=== PATIENT | female | born 1970 | race Caucasian/White ===

== ENCOUNTER 2016-07-21 06:58 | Emergency (ER) | payer OTHER ==
[~2016-07-21] VITALS: Ht 172.7 cm; Wt 62.6 kg
[2016-07-21 07:00] VITALS: BP 140/70
--- NOTE | 2016-07-21 07:43 | NUR ---
PT TAKEN TO CT VIA WHEELCHAIR
== END 2016-07-21 08:09 | disposition home or self-care (01) ==
LOC: ER 07:00
DX: R05 Cough (principal); Z60.9 Problem related to social environment, unspecified; Z60.8 Other problems related to social environment
CPT/HCPCS: 71020; 99284; A4606; Z7610

== ENCOUNTER 2016-10-09 12:02 | Emergency (ER) | payer OTHER ==
[~2016-10-09] VITALS: Ht 167.6 cm; Wt 52.2 kg
--- NOTE | 2016-10-09 12:02 | NUR ---
PT YESSI FROM THE STREETS TO ERBED 15. PER REPORT, POSSIBLE METH USE. ALTERED, DRY MOUITH POSSIBLY DEHYDRATED. PLACED ON MONITOR TACHY OTHERWISE STABLE VITALS AT THIS TIME. AWAITING MD FITZGERALD.
--- NOTE | 2016-10-09 12:29 | NUR ---
TUAN TURCIOS AT BEDSIDE FOR EVAL.
[2016-10-09] MEDS ORDERED: LORAZEPAM INJ 2 MG/ML VIAL IVP ONE (12:30)
[2016-10-09] MEDS ORDERED: IV NS 0.9% 1,000 ML BAG IV ONE (12:30)
[2016-10-09 12:43] LABS: BASOPHILS # (AUTO) 0.1 /CMM (0.0-0.2); BASOPHILS % (AUTO) 1.2 % (0.0-2.0); EOSINOPHILS % (AUTO) 0.2 % (0.0-6.0); HEMATOCRIT 36 % (33-45); LYMPHOCYTES # (AUTO) 2.6 /CMM (0.8-4.8); LYMPHOCYTES % (AUTO) 24.1 % (20.0-44.0); MEAN CORPUSCULAR HEMOGLOBIN 30 PG (26.0-33.0); MEAN CORPUSCULAR HGB CONC 34 g/dl (31.0-36.0); MEAN CORPUSCULAR VOLUME 89 fL (82-100); MONOCYTES # (AUTO) 0.8 /CMM (0.1-1.30); MONOCYTES % (AUTO) 7.4 % (2.0-12.0); NEUTROPHILS # (AUTO) 7.2 /CMM (1.8-8.9); NEUTROPHILS % (AUTO) 67.1 % (43.0-81.0); PLATELET COUNT (AUTO) 486 /CMM (150-450); RDW COEFFICIENT OF VARIATION 14.6 (11.5-15.0); RED BLOOD CELL COUNT(AUTO) 3.99 MIL/uL (4.0-5.2); WHITE BLOOD COUNT (AUTO) 10.7 K/uL (4.3-11.0)
[2016-10-09 12:53] LABS: CALCIUM, SERUM 9.1 mg/dL (8.5-10.1); CARBON DIOXIDE 25 mmol/L (21-32); CHLORIDE 108 mmol/L (98-107); CREATININE 0.9 mg/dL (0.6-1.3); GLUCOSE 100 mg/dL (74-106); POTASSIUM 3.7 mmol/L (3.5-5.1); SODIUM SERUM 144 mmol/L (136-145); UREA NITROGEN, BLOOD 20 mg/dL (7-18)
[2016-10-09 13:10] LABS: ACETAMINOPHEN 0 ug/ml (10-30); ALANINE AMINOTRANSFERASE 29 U/L (12-78); ALBUMIN 3.9 g/dL (3.4-5.0); ALCOHOL, BLOOD < 3 mg/dL (0-0); ALKALINE PHOSPHATASE 48 U/L (46-116); ASPARTATE AMINOTRANSFERASE 26 U/L (15-37); BILIRUBIN,DIRECT 0.1 mg/dL (0.0-0.2); SALICYLATE 0.3 mg/dL (2.8-20.0); TOTAL PROTEIN, SERUM 7.9 g/dL (6.4-8.2)
[2016-10-09] MEDS ORDERED: IV NS 0.9% 1,000 ML ONE (13:25)
[2016-10-09] MEDS ORDERED: IV SET PRIMARY 1 EA INFUS.SET MC ONE (13:25)
[2016-10-09] MEDS ORDERED: LORAZEPAM INJ 2 MG/ML VIAL ONE (13:25)
[2016-10-09] MEDS ORDERED: OLANZAPINE 10 MG VIAL IM ONE ×2 (14:00→14:02)
[2016-10-09] MEDS ORDERED: WATER FOR INJECTION,STERILE 10 ML ONE (14:02)
--- NOTE | 2016-10-09 15:16 | NUR ---
ART CHIEF RESERVOIR ENGINEERING AT BEDSIDE FOR PSYCH EVAL.
[2016-10-09 15:22] LABS: APPEARANCE,URINE Clear (CLEAR); BILIRUBIN,URINE Negative (NEGATIVE); BLOOD, URINE Negative Ery/uL (NEGATIVE); COLOR,URINE Yellow (YELLOW); KETONES,URINE Negative (NEGATIVE); LEUKOCYTE ESTERASE ,URINE Negative (NEGATIVE); NITRITE, URINE Negative (NEGATIVE); PH,URINE 5.5 (5.0-8.0); PROTEIN,URINE 30 mg/dl (NEGATIVE); UGLUCOSE Negative (NEGATIVE); UROBILINOGEN,URINE 0.2 EU/dL (0.2)
[2016-10-09 15:23] LABS: BACTERIA,URINE Few /HPF (None Seen); RBC,URINE 0-2 /HPF (0-2); SQUAMOUS EPITHELIAL CELL,UR Few /HPF (None Seen); WBC,URINE 0-2 /HPF (0-3)
[2016-10-09 15:24] LABS: HYALINE CASTS, URINE Few /LPF (None Seen)
--- NOTE | 2016-10-09 17:10 | NUR ---
IV removed. Catheter intact and site benign. Pressure and 4x4 applied to site. No bleeding noted.
--- NOTE | 2016-10-09 17:27 | NUR ---
Patient discharged to home in stable condition. Written and verbal after care instructions given. Patient verbalizes understanding of instruction. Pt ambulatory with a steady gait.
[2016-10-09 17:30] VITALS: BP 122/71
== END 2016-10-09 17:31 | disposition home or self-care (01) ==
LOC: ER 12:05
DX: F19.10 Other psychoactive substance abuse, uncomplicated (principal); R41.82 Altered mental status, unspecified
CPT/HCPCS: 36415; 51702; 70450; 80048; 80076; 80305; 80329; 81001; 84484; 84703; 85025; 93005; 96361; 96372; 96374; 99285; A4606; G0480 ×2; J2060; J3490; J7030; Z7610; 81000-TC

== ENCOUNTER 2017-07-24 20:14 | Emergency (ER) | payer OTHER ==
[~2017-07-24] VITALS: Ht 165.1 cm; Wt 63.5 kg
[2017-07-24] MEDS ORDERED: OLANZAPINE 5 MG TABLET PO ONE (20:30)
[2017-07-24] MEDS ORDERED: LORAZEPAM 1 MG TABLET PO ONE (20:30)
--- NOTE | 2017-07-24 20:32 | NUR ---
PATIENT TO ED DT SI- NO SPECIFIC PLAN, PER PATIENT SHE HAS BEEN OFF OF MEDS FOR 3 WEEKS; AND HAS BEEN HEARING VOICES. PATIENT IS NOT IN DISTRESS. VSS
[2017-07-24 20:45] LABS: BASOPHILS # (AUTO) 0.1 /CMM (0.0-0.2); BASOPHILS % (AUTO) 0.9 % (0.0-2.0); EOSINOPHILS % (AUTO) 1.6 % (0.0-6.0); HEMATOCRIT 37 % (33-45); HEMOGLOBIN 12.5 g/dL (11.5-14.8); LYMPHOCYTES # (AUTO) 2.9 /CMM (0.8-4.8); MEAN CORPUSCULAR HGB CONC 34 g/dl (31.0-36.0); MEAN CORPUSCULAR VOLUME 87 fL (82-100); MONOCYTES # (AUTO) 0.6 /CMM (0.1-1.30); NEUTROPHILS # (AUTO) 4.7 /CMM (1.8-8.9); NEUTROPHILS % (AUTO) 56.5 % (43.0-81.0); PLATELET COUNT (AUTO) 316 /CMM (150-450); RDW COEFFICIENT OF VARIATION 15.6 (11.5-15.0); RED BLOOD CELL COUNT(AUTO) 4.22 MIL/uL (4.0-5.2); WHITE BLOOD COUNT (AUTO) 8.4 K/uL (4.3-11.0)
[2017-07-24 20:50] LABS: APPEARANCE,URINE Clear (CLEAR); BILIRUBIN,URINE Negative (NEGATIVE); BLOOD, URINE Small Ery/uL (NEGATIVE); COLOR,URINE Yellow (YELLOW); KETONES,URINE Negative (NEGATIVE); LEUKOCYTE ESTERASE ,URINE Negative (NEGATIVE); NITRITE, URINE Negative (NEGATIVE); PROTEIN,URINE Negative (NEGATIVE); UGLUCOSE Negative (NEGATIVE); UROBILINOGEN,URINE 0.2 EU/dL (0.2)
[2017-07-24] MEDS ORDERED: LORAZEPAM 1 MG TABLET ONE (20:53)
[2017-07-24] MEDS ORDERED: OLANZAPINE 5 MG TABLET ONE (20:53)
[2017-07-24 21:01] LABS: ALANINE AMINOTRANSFERASE 30 U/L (12-78); ALBUMIN 3.2 g/dL (3.4-5.0); ALCOHOL, BLOOD < 3 mg/dL (0-0); ALKALINE PHOSPHATASE 50 U/L (46-116); ASPARTATE AMINOTRANSFERASE 20 U/L (15-37); BILIRUBIN,DIRECT 0.1 mg/dL (0.0-0.2); BILIRUBIN,TOTAL 0.1 mg/dL (0.2-1.0); CALCIUM, SERUM 8.9 mg/dL (8.5-10.1); CARBON DIOXIDE 30 mmol/L (21-32); CHLORIDE 104 mmol/L (98-107); CREATININE 0.6 mg/dL (0.6-1.3); GLUCOSE 95 mg/dL (74-106); POTASSIUM 3.6 mmol/L (3.5-5.1); SODIUM SERUM 137 mmol/L (136-145); TOTAL PROTEIN, SERUM 6.7 g/dL (6.4-8.2); UREA NITROGEN, BLOOD 9 mg/dL (7-18)
[2017-07-24 21:11] LABS: SALICYLATE 1.8 mg/dL (2.8-20.0)
[2017-07-24 21:12] LABS: ACETAMINOPHEN 0 ug/ml (10-30)
[2017-07-24 21:17] LABS: BACTERIA,URINE Rare /HPF (None Seen); SQUAMOUS EPITHELIAL CELL,UR Few /HPF (None Seen); URINE AMORPHOUS URATE Few /HPF (None Seen); WBC,URINE 0-2 /HPF (0-3)
--- NOTE | 2017-07-24 22:13 | NUR ---
CALLED TRINI PULLIAM FOR PSYCH EVAL.
--- NOTE | 2017-07-24 22:59 | NUR ---
CAPILLA, LACW AT BEDSIDE FOR EVAL
--- NOTE | 2017-07-24 23:07 | NUR ---
ART BS FOR EVAL
--- NOTE | 2017-07-25 01:08 | NUR ---
CALLED MAGGI AT [facility] ([phone]). SHE SAID SHE WOULD FOLLOW UP WITH THE [facility] AND CALL ME BACK WITH AN UPDATE WHEN SHE RECEIVES INFORMATION.
--- NOTE | 2017-07-25 01:20 | NUR ---
RECEIVED CALL BACK FROM MAGGI AT [facility]. PER MAGGI, CHARGE NURSE IS COUNTING THE AVAILABLE BEDS FOR PSYCHIATRIC ADMISSION AND WILL CALL MAGGI BACK WITH AN UPDATE.
--- NOTE | 2017-07-25 01:57 | NUR ---
RECEIVED CALL BACK FROM MAGGI AT [facility]. PT GOING TO [facility]. ACCEPTED BY DR. RICE. CALL FOR REPORT [address] [id number] [place] [address]
--- NOTE | 2017-07-25 02:04 | NUR ---
CALLED [facility]. GAVE REPORT TO DANICA DIOP. PATIENT GOING TO BED 601-B.
--- NOTE | 2017-07-25 02:07 | NUR ---
CALLED [facility] FOR TRANSPORT TO [facility]. ETA:60 MINS TRIP#[phone]
[2017-07-25 03:13] VITALS: BP 106/61
== END 2017-07-25 03:14 ==
LOC: ER 20:15
DX: F29 Unspecified psychosis not due to a substance or known physiological condition (principal); R45.851 Suicidal ideations; F31.9 Bipolar disorder, unspecified; F20.9 Schizophrenia, unspecified; Z91.19 Patient's noncompliance with other medical treatment and regimen
CPT/HCPCS: 36415; 80048-TC; 80076-TC; 80305; 81000-TC; 84703-TC; 85025-TC; A4606; G0480; Z7610

== ENCOUNTER 2017-10-17 14:28 | Emergency (ER) | payer OTHER ==
[~2017-10-17] VITALS: Ht 162.6 cm; Wt 60.8 kg
--- NOTE | 2017-10-17 14:30 | NUR ---
[id number]: PSYCHOTIC S/P USING METH Addendum: 10/17/17 at 1617 by QUIQUE NAD NOTED, VSS, RESP EVEN AND UNLABORED, PT WAS PUT ON MONITOR AND HOSPITAL GOWN. WAITING FOR MD FITZGERALD.
[2017-10-17] MEDS ORDERED: LORAZEPAM INJ 2 MG/ML VIAL ONE ×2 (14:48→23:18)
[2017-10-17] MEDS ORDERED: LORAZEPAM INJ 2 MG/ML VIAL IM ONE ×2 (15:00→23:30)
[2017-10-17 15:39] LABS: BASOPHILS # (AUTO) 0.1 /CMM (0.0-0.2); BASOPHILS % (AUTO) 0.7 % (0.0-2.0); EOSINOPHILS % (AUTO) 0.5 % (0.0-6.0); HEMATOCRIT 40 % (33-45); HEMOGLOBIN 14.2 g/dL (11.5-14.8); MEAN CORPUSCULAR HEMOGLOBIN 31 PG (26.0-33.0); MEAN CORPUSCULAR HGB CONC 36 g/dl (31.0-36.0); MEAN CORPUSCULAR VOLUME 88 fL (82-100); MONOCYTES # (AUTO) 1.2 /CMM (0.1-1.30); MONOCYTES % (AUTO) 10.1 % (2.0-12.0); NEUTROPHILS # (AUTO) 8.3 /CMM (1.8-8.9); NEUTROPHILS % (AUTO) 71.7 % (43.0-81.0); PLATELET COUNT (AUTO) 326 /CMM (150-450); RDW COEFFICIENT OF VARIATION 13.4 (11.5-15.0); RED BLOOD CELL COUNT(AUTO) 4.51 MIL/uL (4.0-5.2); WHITE BLOOD COUNT (AUTO) 11.7 K/uL (4.3-11.0)
--- NOTE | 2017-10-17 15:40 | NUR ---
PT IS COMBATIVE, UNABLE TO STAY STILL FOR CT SCAN. ER WILL CALL WHEN READY.
[2017-10-17 15:48] LABS: CALCIUM, SERUM 9.8 mg/dL (8.5-10.1); CARBON DIOXIDE 29 mmol/L (21-32); CHLORIDE 102 mmol/L (98-107); CREATININE 0.9 mg/dL (0.6-1.3); GLUCOSE 90 mg/dL (74-106); POTASSIUM 3.5 mmol/L (3.5-5.1); SODIUM SERUM 139 mmol/L (136-145); UREA NITROGEN, BLOOD 27 mg/dL (7-18)
[2017-10-17 15:52] LABS: INR 1.06 (0.85-1.15)
[2017-10-17 15:54] LABS: ACETAMINOPHEN < 2 ug/ml (10-30); ALANINE AMINOTRANSFERASE 78 U/L (12-78); ALBUMIN 4.4 g/dL (3.4-5.0); ALKALINE PHOSPHATASE 70 U/L (46-116); ASPARTATE AMINOTRANSFERASE 143 U/L (15-37); BILIRUBIN,DIRECT 0.2 mg/dL (0.0-0.2); BILIRUBIN,TOTAL 1.2 mg/dL (0.2-1.0); SALICYLATE 0.4 mg/dL (2.8-20.0); TOTAL PROTEIN, SERUM 8.6 g/dL (6.4-8.2)
[2017-10-17 16:12] LABS: THYROID STIMULATING HORMONE 1.536 uIU/mL (0.358-3.74)
[2017-10-17] MEDS ORDERED: IV NS 0.9% 1,000 ML BAG IV ONE (17:30)
--- NOTE | 2017-10-17 17:35 | NUR ---
pt is more cooperative, understand why she is in the hospital. but still unable to give urine sample. will try after IVF has been infused.
--- NOTE | 2017-10-17 17:37 | NUR ---
called nutirition for meal tray.
[2017-10-17 18:31] LABS: APPEARANCE,URINE Slightly Cloudy (CLEAR); BILIRUBIN,URINE SMALL (NEGATIVE); BLOOD, URINE Negative Ery/uL (NEGATIVE); COLOR,URINE Dark (YELLOW); KETONES,URINE Trace (NEGATIVE); LEUKOCYTE ESTERASE ,URINE Negative (NEGATIVE); NITRITE, URINE Negative (NEGATIVE); PH,URINE 5.5 (5.0-8.0); PROTEIN,URINE 100 mg/dl (NEGATIVE); UGLUCOSE Negative (NEGATIVE); UROBILINOGEN,URINE 0.2 EU/dL (0.2)
[2017-10-17 18:47] LABS: RBC,URINE 0-2 /HPF (0-2); WBC,URINE 0-2 /HPF (0-3)
[2017-10-17 18:48] LABS: BACTERIA,URINE Few /HPF (None Seen); SQUAMOUS EPITHELIAL CELL,UR Few /HPF (None Seen)
--- NOTE | 2017-10-17 19:00 | NUR ---
Patient is resting comfortably in bed with eyes closed. Easily aroused. VSS
--- NOTE | 2017-10-17 20:00 | NUR ---
1:1 SITTER AT BS
--- NOTE | 2017-10-17 22:58 | NUR ---
VSS. THAYER AT BS.
[2017-10-17] MEDS ORDERED: OLANZAPINE 10 MG VIAL IM ONE ×2 (23:18→23:30)
[2017-10-17] MEDS ORDERED: LORAZEPAM INJ 2 MG/ML VIAL IV ONE (23:30)
--- NOTE | 2017-10-17 23:55 | NUR ---
ASSUMED CARE OF PT AT THIS TIME. PT RESTING WITH EYES CLOSED BUT AROUSABLE. NO S/S OF DISTRESS NOTED AT THIS TIME. RESP EVEN AND UNLABORED. WILL CONTINUE TO MONITOR PT.
--- NOTE | 2017-10-18 01:07 | NUR ---
GIVEN SANDWICH AND JUICE. DENIES SI/HI OR ANY NEW SX'S AT THIS TIME.
--- NOTE | 2017-10-18 02:28 | NUR ---
RESTING WITH NO S/S OF DISTRESS AT THIS TIME. RESP EVEN AND UNLABORED.
--- NOTE | 2017-10-18 03:38 | NUR ---
LYING SUPINE WITH NO DISTRESS. RESP EVEN AND UNLABOREED.
--- NOTE | 2017-10-18 05:00 | NUR ---
LYING LT SIDE AT THIS TIME. STILL MONITORED. NAD NOTED.
[2017-10-18 05:02] VITALS: BP 107/77
--- NOTE | 2017-10-18 05:30 | NUR ---
AAO X4; Denies SI/HI. Patient discharged to home in stable condition. Written and verbal after care instructions given. Patient verbalizes understanding of instruction. IV removed. Catheter intact and site benign. Pressure and 4x4 applied to site. No bleeding noted. Ambulatory with a steady gait
== END 2017-10-18 05:32 | disposition home or self-care (01) ==
LOC: ER 14:32
DX: F15.10 Other stimulant abuse, uncomplicated (principal); E86.0 Dehydration; F31.9 Bipolar disorder, unspecified; F20.9 Schizophrenia, unspecified
CPT/HCPCS: 36415; 70450; 80048; 80076; 80305; 80329; 81001; 84443; 84703; 85025; 85730; 93005; 96361; 96372; 96374; 99285; A4606; G0480 ×2; J2060 ×2; J3490; Z7610; 81000-TC

== ENCOUNTER 2017-11-13 22:22 | Emergency (ER) | payer OTHER ==
[~2017-11-13] VITALS: Ht 152.4 cm; Wt 55.8 kg
--- NOTE | 2017-11-13 22:23 | NUR ---
ER AT BEDSIDE FOR EVAL
--- NOTE | 2017-11-13 23:09 | NUR ---
"FOUND SEATED INFRONT OF LAUNDRY MAT DRUNK WITH EMPTY VODAK BOTTLE" DENIES SI HI. PT IS HYPERTENSIVE BUT OTHERWISE VSS NO ACUTE DISTRESS NOTED AT THIS TIME. PT IS ALERT AND ORIENTED X3 BUT ABLE TO MAKE NEED KNOWN. WILL CONTINUE TO MONITOR FOR ANY CHANGES DURING THE SHIFT.
[2017-11-13 23:28] LABS: BASOPHILS # (AUTO) 0.1 /CMM (0.0-0.2); BASOPHILS % (AUTO) 0.6 % (0.0-2.0); EOSINOPHILS % (AUTO) 1.6 % (0.0-6.0); HEMATOCRIT 39 % (33-45); HEMOGLOBIN 13.3 g/dL (11.5-14.8); LYMPHOCYTES # (AUTO) 3.6 /CMM (0.8-4.8); LYMPHOCYTES % (AUTO) 31.9 % (20.0-44.0); MEAN CORPUSCULAR HEMOGLOBIN 32 PG (26.0-33.0); MEAN CORPUSCULAR HGB CONC 34 g/dl (31.0-36.0); MEAN CORPUSCULAR VOLUME 93 fL (82-100); MONOCYTES # (AUTO) 1.2 /CMM (0.1-1.30); MONOCYTES % (AUTO) 10.2 % (2.0-12.0); NEUTROPHILS # (AUTO) 6.3 /CMM (1.8-8.9); NEUTROPHILS % (AUTO) 55.7 % (43.0-81.0); PLATELET COUNT (AUTO) 321 /CMM (150-450); RDW COEFFICIENT OF VARIATION 13.7 (11.5-15.0); RED BLOOD CELL COUNT(AUTO) 4.22 MIL/uL (4.0-5.2); WHITE BLOOD COUNT (AUTO) 11.3 K/uL (4.3-11.0)
[2017-11-13 23:43] LABS: APPEARANCE,URINE CLOUDY (CLEAR); BILIRUBIN,URINE NEGATIVE (NEGATIVE); BLOOD, URINE TRACE-INTA Ery/uL (NEGATIVE); COLOR,URINE YELLOW (YELLOW); KETONES,URINE NEGATIVE (NEGATIVE); LEUKOCYTE ESTERASE ,URINE TRACE (NEGATIVE); NITRITE, URINE NEGATIVE (NEGATIVE); PROTEIN,URINE TRACE mg/dl (NEGATIVE); UGLUCOSE NEGATIVE (NEGATIVE)
[2017-11-13 23:57] LABS: BACTERIA,URINE Few /HPF (None Seen); RBC,URINE 0-2 /HPF (0-2); SQUAMOUS EPITHELIAL CELL,UR Moderate /HPF (None Seen); URINE AMORPHOUS URATE Moderate /HPF (None Seen)
[2017-11-13 23:58] LABS: CALCIUM, SERUM 8.5 mg/dL (8.5-10.1); CARBON DIOXIDE 22 mmol/L (21-32); CHLORIDE 102 mmol/L (98-107); CREATININE 0.8 mg/dL (0.6-1.3); GLUCOSE 116 mg/dL (74-106); POTASSIUM 3.2 mmol/L (3.5-5.1); SODIUM SERUM 136 mmol/L (136-145); UREA NITROGEN, BLOOD 15 mg/dL (7-18)
[2017-11-14 00:04] LABS: ALANINE AMINOTRANSFERASE 31 U/L (12-78); ALBUMIN 3.8 g/dL (3.4-5.0); ALKALINE PHOSPHATASE 76 U/L (46-116); ASPARTATE AMINOTRANSFERASE 26 U/L (15-37); BILIRUBIN,DIRECT 0.1 mg/dL (0.0-0.2); BILIRUBIN,TOTAL 0.6 mg/dL (0.2-1.0); TOTAL PROTEIN, SERUM 7.3 g/dL (6.4-8.2)
[2017-11-14 00:08] LABS: ACETAMINOPHEN 0 ug/ml (10-30); ALCOHOL, BLOOD < 3 mg/dL (0-0); SALICYLATE 1.1 mg/dL (2.8-20.0)
[2017-11-14] MEDS ORDERED: CEPHALEXIN MONOHYDRATE 500 MG CAPSULE PO ONE ×2 (00:30→00:36)
[2017-11-14] MEDS ORDERED: POTASSIUM CHLORIDE 20 MEQ TAB.PRT.SR PO ONE ×2 (00:30→00:36)
[2017-11-14 05:19] VITALS: BP 130/86
== END 2017-11-14 05:20 | disposition home or self-care (01) ==
LOC: ER 22:23
DX: F15.129 Other stimulant abuse with intoxication, unspecified (principal); F19.10 Other psychoactive substance abuse, uncomplicated; N39.0 Urinary tract infection, site not specified; E87.6 Hypokalemia; F31.9 Bipolar disorder, unspecified; F20.9 Schizophrenia, unspecified; F10.10 Alcohol abuse, uncomplicated; Y90.0 Blood alcohol level of less than 20 mg/100 ml
CPT/HCPCS: 36415; 80048; 80076; 80305; 80329; 81001; 82962; 85025; 87086; 99284; A4606; G0480 ×2; Z7610; 81000-TC

== ENCOUNTER 2019-09-25 02:29 | Emergency (ER) | payer OTHER ==
[~2019-09-25] VITALS: Ht 160 cm; Wt 59.0 kg
--- NOTE | 2019-09-25 02:33 | NUR ---
BIBRA[address] FROM [address] PER RA, "FOUND LAYING ON FLOOR S/P METH USE", PT TO BED 6, AWAKE, SPEAKING INCOHERENTLY, BIZARRE BEHAVIOR, PLACED ON MONITOR, -SOB, -CP, VSS. PENDING MD FITZGERALD
--- NOTE | 2019-09-25 02:50 | NUR ---
URINE COLLECTED AND SENT TO LAB
[2019-09-25 03:03] LABS: BASOPHILS # (AUTO) 0.1 /CMM (0.0-0.2); BASOPHILS % (AUTO) 0.6 % (0.0-2.0); EOSINOPHILS % (AUTO) 0.2 % (0.0-6.0); HEMATOCRIT 44 % (33-45); HEMOGLOBIN 14.7 g/dL (11.5-14.8); LYMPHOCYTES # (AUTO) 2.5 /CMM (0.8-4.8); LYMPHOCYTES % (AUTO) 13.8 % (20.0-44.0); MEAN CORPUSCULAR HGB CONC 34 g/dl (31.0-36.0); MEAN CORPUSCULAR VOLUME 90 fL (82-100); MONOCYTES # (AUTO) 1.5 /CMM (0.1-1.30); MONOCYTES % (AUTO) 8.6 % (2.0-12.0); NEUTROPHILS # (AUTO) 13.9 /CMM (1.8-8.9); NEUTROPHILS % (AUTO) 76.8 % (43.0-81.0); PLATELET COUNT (AUTO) 350 /CMM (150-450); RED BLOOD CELL COUNT(AUTO) 4.86 MIL/uL (4.0-5.2)
[2019-09-25 03:15] LABS: ALANINE AMINOTRANSFERASE 28 U/L (12-78); ALBUMIN 4.8 g/dL (3.4-5.0); ALCOHOL, BLOOD < 3 mg/dL (0-0); ALKALINE PHOSPHATASE 72 U/L (46-116); ASPARTATE AMINOTRANSFERASE 36 U/L (15-37); BILIRUBIN,DIRECT 0.2 mg/dL (0.0-0.2); BILIRUBIN,TOTAL 1.6 mg/dL (0.2-1.0); CALCIUM, SERUM 9.7 mg/dL (8.5-10.1); CARBON DIOXIDE 23 mmol/L (21-32); CHLORIDE 92 mmol/L (98-107); CREATININE 1.3 mg/dL (0.6-1.3); GLUCOSE 119 mg/dL (74-106); POTASSIUM 3.2 mmol/L (3.5-5.1); SODIUM SERUM 129 mmol/L (136-145); UREA NITROGEN, BLOOD 43 mg/dL (7-18)
[2019-09-25 03:22] LABS: SALICYLATE < 0.2 mg/dL (2.8-20.0)
[2019-09-25 03:23] LABS: ACETAMINOPHEN 0 ug/ml (10-30)
[2019-09-25 03:28] LABS: APPEARANCE,URINE Clear (CLEAR); BILIRUBIN,URINE Negative (NEGATIVE); BLOOD, URINE Small Ery/uL (NEGATIVE); COLOR,URINE Yellow (YELLOW); KETONES,URINE Negative (NEGATIVE); LEUKOCYTE ESTERASE ,URINE Negative (NEGATIVE); NITRITE, URINE Negative (NEGATIVE); PH,URINE 5.5 (5.0-8.0); PROTEIN,URINE 100 mg/dl (NEGATIVE); UGLUCOSE Negative (NEGATIVE); UROBILINOGEN,URINE 0.2 EU/dL (0.2)
--- NOTE | 2019-09-25 03:30 | NUR ---
PT ON ER OBS; PT SLEEPING, VSS, NAD NOTED.
[2019-09-25 03:52] LABS: BACTERIA,URINE Moderate /HPF (None Seen); SQUAMOUS EPITHELIAL CELL,UR Few /HPF (None Seen)
--- NOTE | 2019-09-25 06:00 | NUR ---
PT OK TO D/C ONCE MORE AWAKE. D/C PAPERS IN CHART.
--- NOTE | 2019-09-25 07:00 | NUR ---
PT AWAKE. AAOX4. AMBULATORY WITH STEADY GAIT. PER MD, MEDICALLY CLEARED FOR DISCHARGE. IV removed. Catheter intact and site benign. Pressure and 4x4 applied to site. No bleeding noted.
[2019-09-25 07:03] VITALS: BP 148/68
--- NOTE | 2019-09-25 07:03 | NUR ---
Patient given written and verbal discharge instructions. Patient verbalizes understanding of instructions. Patient is ambulatory with steady gait. Refuses offer of [facility] placement. Patient given list of available shelters in surrounding area.
== END 2019-09-25 07:04 | disposition home or self-care (01) ==
LOC: ER 02:32 → EDBD 02:32 → MERGE 02:32 → ER 07:04
DX: F15.10 Other stimulant abuse, uncomplicated (principal)
CPT/HCPCS: 36415; 80048; 80076; 80305; 80307; 80329; 81001; 82962; 85025; 87086; 99285; G0480; 81000-TC

== ENCOUNTER 2020-11-30 09:07 | Emergency (ER) | payer OTHER ==
[~2020-11-30] VITALS: Ht 170.2 cm; Wt 61.2 kg
--- NOTE | 2020-11-30 09:35 | NUR ---
[address] [facility] [address], "DONT FEEL GOOD AND IM HEARING VOICES." DENIES SI/HI. PATIENT ALERT ORIENTED X4. 0/10 PAIN, RESPIRATIONS EVEN AND UNLABORED. PROVIDED WARM BLANKET. MD AT BEDSIDE AND WILL CONTINUE TO MONITOR.
--- NOTE | 2020-11-30 10:46 | NUR ---
Home Energy Inspector consultation: Home Energy Inspector consultation requested for homelessness. Patient is a 50 year old female, who was brought in by ambulance complaining of "I'm not feeling good, I'm hearing voices". This ROOF MECHANIC met with the patient bedside in the ED. Patient was eating a sandwich, but was receptive to speaking with this ROOF MECHANIC. Patient states she is homeless, suffers from Bipolar Disorder and Schizophrenia, is hearing voices, and has not taken her medications for nearly 2 months. Patient reports SI, with plan to "I'll take pills from the street, I'll bash my head in". Patient denies HI. Patient denies visual hallucinations, however reports hearing voices. Patient could not provide additional information about the voices. This ROOF MECHANIC offered patient the option of voluntary psychiatric hospitalization, and patient expressed agreement. Patient denies use of drugs. Patient kept on stating "I don't feel good, I have an infection" and at times was difficult to redirect. This ROOF MECHANIC offered patient homeless community resources and patient was receptive. This ROOF MECHANIC provided patient with the homeless resource packet, which includes a list of homeless shelters, places for food and showers, medical and mental health clinics, and locations of pharmacies. Patient signed the homeless patient waiver form, and this ROOF MECHANIC placed the waiver in patient's ED chart. This ROOF MECHANIC met with Stevie and informed him of above. DANICA Hester also informed. PLAN: This ROOF MECHANIC will refer patient to [facility] for voluntary in-patient psychiatric hospitalization. Pending medical clearance, patient can be transported by ambulance to [facility].
[2020-11-30 11:12] LABS: BASOPHILS # (AUTO) 0.1 K/uL (0.0-0.2); BASOPHILS % (AUTO) 1.2 % (0.0-2.0); EOSINOPHILS % (AUTO) 0.6 % (0.0-6.0); HEMATOCRIT 41 % (33-45); HEMOGLOBIN 13.7 g/dL (11.5-14.8); LYMPHOCYTES # (AUTO) 1.7 K/uL (0.8-4.8); LYMPHOCYTES % (AUTO) 22.2 % (20.0-44.0); MEAN CORPUSCULAR HGB CONC 33 g/dl (31.0-36.0); MEAN CORPUSCULAR VOLUME 93 fL (82-100); MONOCYTES # (AUTO) 0.4 K/uL (0.1-1.30); MONOCYTES % (AUTO) 4.9 % (2.0-12.0); NEUTROPHILS # (AUTO) 5.5 K/uL (1.8-8.9); NEUTROPHILS % (AUTO) 71.1 % (43.0-81.0); PLATELET COUNT (AUTO) 371 K/uL (150-450); RED BLOOD CELL COUNT(AUTO) 4.45 MIL/uL (4.0-5.2); WHITE BLOOD COUNT (AUTO) 7.7 K/uL (4.3-11.0)
--- NOTE | 2020-11-30 11:36 | NUR ---
This OPEN HEARTH FURNACE LABORER faxed the ED summary to Khanh at [facility], fax # [phone]. Labs and COVID pending. AMILCAR Vu to follow-up.
[2020-11-30 11:39] LABS: CALCIUM, SERUM 8.6 mg/dL (8.5-10.1); CARBON DIOXIDE 30 mmol/L (21-32); CHLORIDE 103 mmol/L (98-107); CREATININE 0.7 mg/dL (0.6-1.3); GLUCOSE 135 mg/dL (74-106); SODIUM SERUM 138 mmol/L (136-145); UREA NITROGEN, BLOOD 15 mg/dL (7-18)
[2020-11-30 11:45] LABS: ALANINE AMINOTRANSFERASE 23 U/L (12-78); ALBUMIN 3.3 g/dL (3.4-5.0); ALCOHOL, BLOOD < 3 mg/dL (0-0); ALKALINE PHOSPHATASE 57 U/L (46-116); ASPARTATE AMINOTRANSFERASE 12 U/L (15-37); BILIRUBIN,DIRECT 0.1 mg/dL (0.0-0.2); BILIRUBIN,TOTAL 0.3 mg/dL (0.2-1.0)
[2020-11-30 12:00] LABS: ACETAMINOPHEN < 10 ug/ml (10-30)
--- NOTE | 2020-11-30 12:29 | NUR ---
URINE COLLECTED AND SENT TO THE LAB
--- NOTE | 2020-11-30 12:38 | NUR ---
AWAITING LAB RESULTS TO FAX OVER TO [facility].
[2020-11-30 12:46] LABS: BILIRUBIN,URINE NEGATIVE (NEGATIVE); COLOR,URINE YELLOW (YELLOW); LEUKOCYTE ESTERASE ,URINE TRACE (NEGATIVE); NITRITE, URINE NEGATIVE (NEGATIVE); PROTEIN,URINE NEGATIVE (NEGATIVE); UGLUCOSE NEGATIVE (NEGATIVE); UROBILINOGEN,URINE 0.2 EU/dL (0.2)
[2020-11-30 12:57] LABS: RBC,URINE NONE SEEN /HPF (0-2)
[2020-11-30 12:58] LABS: BACTERIA,URINE None seen /HPF (None Seen); SQUAMOUS EPITHELIAL CELL,UR Few /HPF (None Seen)
--- NOTE | 2020-11-30 14:55 | NUR ---
FAXED CLINICALS TO [facility].
--- NOTE | 2020-11-30 15:21 | NUR ---
ACCEPTED AT [facility] UNDER DR VAUGHN. # FOR REPORT [phone]
--- NOTE | 2020-11-30 15:24 | NUR ---
[facility]ORT [facility] CALLED ETA [phone]
[2020-11-30 16:55] VITALS: BP 118/72
--- NOTE | 2020-11-30 17:25 | NUR ---
REPORT GIVEN TO FRANCISCO MISHRA. AWAITING TRANSPORT AMBULANCE GOING TO [facility].
== END 2020-11-30 17:43 ==
LOC: ER 09:13
DX: S60.922D Unspecified superficial injury of left hand, subsequent encounter (principal); S60.921D Unspecified superficial injury of right hand, subsequent encounter; X58.XXXD Exposure to other specified factors, subsequent encounter; R45.851 Suicidal ideations; Z59.0 Homelessness; Z20.822 Contact with and (suspected) exposure to COVID-19; F20.9 Schizophrenia, unspecified
CPT/HCPCS: 36415; 80048; 80076; 80143; 80307; 80320; 81001; 84703; 85025; 87426; 99285; C9803; G0480